=== PATIENT | male | born 1935 | race Caucasian/White ===

== ENCOUNTER 2019-02-12 08:15 | Observation (INO) | payer MEDICARE ==
[2019-02-12] MEDS ORDERED: Iopamidol 300 61% 100 ML VIAL FS ONE ×2 (09:00→15:05)
[2019-02-12 09:02] LABS: Hemoglobin 17.4 g/dL (14.0-18.0); Mean Corpuscular HGB CONC 32.4 g/dL (32.0-36.0); Mean Corpuscular Hemoglobin 30.2 pg (27.0-31.0); Mean Corpuscular Volume 93.2 fL (78.0-98.0); Mean Platelet Volume 6.8 fL (7.4-10.4); Platelet Count 101 thou/uL (130-400); RBC Distribution Width 12.7 % (11.5-14.5); Red Blood Cell (RBC) Count 5.76 mill/uL (4.70-6.10); White Blood Cell (WBC) Count 3.1 thou/uL (4.8-10.8)
[2019-02-12 09:03] LABS: ALT (SGPT) 21 U/L (8-55); AST (SGOT) 20 U/L (5-34); Albumin 4.1 g/dL (3.4-4.8); Alkaline Phosphatase 99 U/L (40-150); Anion Gap 16 mmol/L (10-20); BUN (Urea Nitrogen) 22 mg/dL (8.4-25.7); Bilirubin, Total 0.6 mg/dL (0.2-1.2); Calc. Creatinine Clearance 0 mL/min (70-130); Calcium 9.9 mg/dL (7.8-10.44); Carbon Dioxide 23 mmol/L (23-31); Chloride 107 mmol/L (98-107); Estimated GFR-MDRD 51; Globulin 3.2 g/dL (2.4-3.5); Glucose 139 mg/dL (83-110); Lipase 36 U/L (8-78); Potassium 3.7 mmol/L (3.5-5.1); Protein, Total 7.3 g/dL (5.8-8.1); Sodium 142 mmol/L (136-145)
[2019-02-12] MEDS ORDERED: Ciprofloxacin Lactate/D5W 400 mg/200 ml Premix ONE (09:06)
[2019-02-12 09:28] LABS: Band 3 % (5-11); Lymphocytes 20 % (21-51); Monocytes 12 % (0-10); Polychromasia SLIGHT = 2-3 cells (100X) (0-2/hpf); Reactive Lymphocytes 4 % (0-10)
[2019-02-12 09:29] LABS: Neutrophil 61 % (42-75); Platelet Morphology Comment Appears Decreased
--- NOTE | 2019-02-12 09:41 | CT ---
EXAM: CT ABDOMEN AND PELVIS HISTORY: Abdominal pain. Diarrhea. COMPARISON: None. Procedure: Multiple contiguous axial images were obtained and a CT of the abdomen and pelvis with IV contrast. C oronal reformats were performed. FINDINGS: Lower Chest: within normal limits. Vessels: Atherosclerosis. Normal caliber. Heart: Normal heart size. Abdomen: Portal vein:Patent Gallbladder: No calcified gallstones. Normal caliber wall. Liver: 0.7 x 0.8 cm hypodensity in the right lobe. Otherwise, unremarkable parenchyma Pancreas: within normal limits. Spleen: Normal echotexture. Mild splenomegaly, measuring 15.3 cm Adrenals: Symmetric enhancement kidneys. No evidence of obstructive uropathy. There are calcification s in the right cortex, likely due to remote insult. There is evidence of scar tissue in renal cortical thinning in the right renal cortex. There is a exophytic hypodensity emanating from the lowe r pole left kidney, measuring 5.4 x 5.9 cm, compatible with a simple cyst. There is a second hypodensity in the mid left renal cortex measuring 3.3 x 2.9 cm also compatible with a simple disc. A dditional smaller hypodensities in the left and right kidney are noted. There are 2 enhancing foci in the left renal cortex, measuring 2.3 x 1.7 and 2.7 x 1.8 cm. Both lesio ns are worrisome for a neoplastic process. Kidneys: within normal limits. Peritoneum: Nonspecific stranding of the right lower quadrant mesentery. There are mildly enlarged me senteric lymph nodes. Design Manager enlarged lymph node measures 0.5 x 0.4 cm Bowel: Limited evaluation due to lack of contrast. No evidence of bowel obstruction. Ileocecal juncti on is unremarkable. Normal caliber appendix. Scattered fecal material in a nondistended, nondilated colon. Occasional diverticulum. No diverticulitis. Bowel wall thickening distal descending colon and sigmoid colon is likely due to inadequate distention Mesentery and Retroperitoneum: Enlarged right lower quadrant mesenteric lymph nodes. Abdominal Wall: Evidence of previous left inguinal hernia repair. Pelvis: Reproductive Organs: No pelvic masses. Pelvis: Surgical clips secondary to previous prostate resection. Bladder: Grossly unremarkable. Bones: within normal limits. IMPRESSION: 1. No acute abnormality in the abdomen or pelvis. 2. No evidence of obstructive uropathy 3. No evidence of bowel obstruction. Normal caliber appendix 4. Diverticulosis, without evidence of diverticulitis. 5. Splenomegaly 6. Enhancing foci in the left kidney, worrisome for neoplasm until otherwise. Consider urology consul tation. CODE T
[2019-02-12] MEDS ORDERED: metroNIDAZOLE 500 MG/100 ML BAG ONE (10:49)
[2019-02-12] MEDS ORDERED: Ondansetron PF 4 MG/2 ML Vial IVP PRN (12:18)
[2019-02-12] MEDS ORDERED: Ondansetron ODT 4 MG TAB PO PRN (12:19)
[2019-02-12] MEDS ORDERED: Sodium Chloride 0.9% 1,000 ML IV SCH (12:30)
[2019-02-12 13:08] VITALS: BMI 26.5
[2019-02-12] MEDS ORDERED: Acetaminophen 325 MG TAB PO PRN (14:09)
[2019-02-12] MEDS: Sodium Chloride 0.9% 1,000 ML IV SCH (16:30)
[2019-02-12] MEDS ORDERED: Rosuvastatin 10 MG TAB PO SCH (17:00)
[2019-02-12] MEDS: Pramipexole Di-HCl 0.25 MG TAB PO SCH (17:14)
[2019-02-12] MEDS: metroNIDAZOLE 500 MG in Premix Bag 1 BAG IVPB SCH (18:25)
[2019-02-12] MEDS: Famotidine 20 MG TAB PO SCH (20:12)
[2019-02-12] MEDS ORDERED: traZODone HCl 50 MG TAB PO SCH (21:00)
[2019-02-12] MEDS ORDERED: HYDROcodone/Acetaminophen 10/325 mg Tablet PO SCH (22:45)
[2019-02-12] MEDS ORDERED: Lorazepam 1 MG TAB PO SCH (22:45)
--- NOTE | 2019-02-13 00:46 | HP ---
CHIEF COMPLAINT: Diarrhea. HISTORY OF PRESENT ILLNESS: This patient is an 83-year-old male who had a 4-day history of fairly severe frequent and explosive diarrhea with some abdominal bloating. He had no associated nausea, vomiting, fevers, or chills. He has not been taking in much p.o. because he thought this was likely a stomach virus and did not want to exacerbate his symptoms. He called his PCP 2 days prior and had stool studies ordered. Today, the patient was instructed that he needed to present to the emergency department by his PCP who then called the emergency department, indicated that the patient's stool studies had in fact come back positive for Salmonella. The patient received 2 L of fluid in the emergency department at the time of my exam, reports he is actually feeling substantially better. He has become profoundly weak and that seems to be improving already. REVIEW OF SYSTEMS: All systems reviewed. All pertinent positives and negatives noted in history of present illness. Of note, the patient denies any recent travel, consumption of suspicious or exotic foods or any ill contacts. PAST MEDICAL HISTORY: Notable for gastroesophageal reflux disorder, history of one episode of pancreatitis, hyperlipidemia, hypertension, spinal stenosis with low back pain, anxiety. 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 This apparently was a benign tumor. He subsequently developed tumors on the left, which have been biopsied and apparently proven to be benign as well. PAST SURGICAL HISTORY: Herniorrhaphy, partial right nephrectomy, left kidney mass biopsy which was benign, bilateral knee replacements, radical prostatectomy for prostate cancer. FAMILY HISTORY: Father of CHF at 85. Mother at 87. Had a sister who at 87 and a brother who at 91. SOCIAL HISTORY: No tobacco use. Has rare alcohol use. He is full code and his would be his surrogate decision maker. ALLERGIES: MEPERIDINE. HOME MEDICATIONS: 1. Mirapex 1 p.o. b.i.d. 2. Zantac 300 at bedtime. 3. Rosuvastatin one p.o. q.p.m. 4. Trazodone 100 mg at bedtime. 5. Magnesium 500 q.p.m. 6. Lorazepam 1.5 at bedtime and 1 mg daily. 7. Sertraline 100 mg daily, 50 mg q.p.m. 8. Hydrocodone p.r.n. 9. Flaxseed oil 1000 mg daily. 10. Diltiazem 120 mg daily. PHYSICAL EXAMINATION: VITAL SIGNS: Temperature 97.6, pulse 68, respirations 20, O2 saturation 95% on room air, BP 130/68. GENERAL APPEARANCE: Normal, age-appropriate male, in no distress. He is awake, alert, oriented, pleasant, and cooperative. He is in no acute distress. Appears looked pretty good at the moment. He is awake and alert. HEENT: TRINI. No OP lesions. NECK: Supple and symmetric. HEART: Regular rate and rhythm without murmurs, gallops, or rubs. LUNGS: Clear to auscultation bilaterally with good chest wall expansion and air exchange. ABDOMEN: Soft, nontender, and nondistended. Positive bowel sounds. No masses. No organomegaly. EXTREMITIES: No cyanosis, clubbing, or edema. NEURO: Fully intact. No focal deficits. PSYCH: Normal affect and behavior. LABORATORY DATA: White count 3.1, hemoglobin 17.4, platelets 101. Chemistries normal with the exception of creatinine 1.35, glucose 139. Stool occult blood is positive. CT abdomen and pelvis shows diverticulosis without diverticulitis. Mild splenomegaly. Enhancing foci on the left kidney concerning for possible cancer. IMPRESSION AND PLAN: 1. Salmonella enterocolitis with diarrhea. Continue with the Cipro and Flagyl started in the emergency department. 2. Acute renal insufficiency on chronic stage 3 kidney disease. The patient's previous GFR was 77 and his previous creatinine was 0.94. This represents acute on chronic renal insufficiency. He has received IV fluids. We will continue those and recheck in the morning. 3. Leukopenia, this appears to be longstanding going back to 2016, as does his thrombocytopenia, possibly representing some form of bone marrow failure. No acute intervention indicated. Job ID: [id number]
[2019-02-13] MEDS: metroNIDAZOLE 500 MG in Premix Bag 1 BAG IVPB SCH ×2 (03:14→11:43)
[2019-02-13] MEDS: Sodium Chloride 0.9% 1,000 ML IV SCH (03:16)
[2019-02-13 06:11] LABS: #Lymphocytes 0.7 thou/uL (1.20-3.40); #Monocytes 0.2 thou/uL (0.11-0.59); #Neutrophils 1.4 thou/uL (1.40-6.50); %Basophils 1.8 % (0.0-1.0); %Lymphocytes 29.2 % (21.0-51.0); Hemoglobin 13.8 g/dL (14.0-18.0); Mean Corpuscular HGB CONC 34.5 g/dL (32.0-36.0); Mean Corpuscular Hemoglobin 31.9 pg (27.0-31.0); Mean Corpuscular Volume 92.5 fL (78.0-98.0); Mean Platelet Volume 7.4 fL (7.4-10.4); Platelet Count 96 thou/uL (130-400); RBC Distribution Width 12.4 % (11.5-14.5); Red Blood Cell (RBC) Count 4.33 mill/uL (4.70-6.10); White Blood Cell (WBC) Count 2.4 thou/uL (4.8-10.8)
[2019-02-13 06:25] LABS: Anion Gap 9 mmol/L (10-20); BUN (Urea Nitrogen) 14 mg/dL (8.4-25.7); Calc. Creatinine Clearance 86 mL/min (70-130); Calcium 8.9 mg/dL (7.8-10.44); Carbon Dioxide 26 mmol/L (23-31); Chloride 109 mmol/L (98-107); Estimated GFR-MDRD 85; Glucose 93 mg/dL (83-110); Potassium 4.3 mmol/L (3.5-5.1); Sodium 140 mmol/L (136-145)
[2019-02-13] MEDS: Pramipexole Di-HCl 0.25 MG TAB PO SCH (08:24)
[2019-02-13] MEDS: Famotidine 20 MG TAB PO SCH (08:30)
[2019-02-13] MEDS ORDERED: Enoxaparin Sodium 30 MG/0.3 ML SYRINGE SC SCH (09:00)
[2019-02-13] MEDS ORDERED: HYDROcodone/Acetaminophen 10/325 mg Tablet PO SCH ×3 (09:00→21:00)
[2019-02-13] MEDS ORDERED: Lorazepam 1 MG TAB PO SCH ×2 (09:00→21:00)
[2019-02-13] MEDS ORDERED: Flaxseed Oil [Flaxseed Oil] 1,000 MG PO SCH (09:00)
[2019-02-13 11:26] VITALS: BP 145/72; TEMP 98.2
--- NOTE | 2019-02-14 14:42 | DIS ---
DATE OF ADMISSION: 02/12/2019 DATE OF DISCHARGE: 02/13/2019 DISCHARGE DIAGNOSES: 1. Salmonella colitis. 2. Dehydration. 3. Acute renal insufficiency on chronic stage 3 kidney disease. 4. Chronic leukopenia. HISTORY OF PRESENT ILLNESS: This patient is an 83-year-old male who had been suffering from significant diarrheal illness. He had actually called his PCP 2 days prior and had stool studies ordered. The patient received a call from his PCP directing him to the emergency department. While in the emergency department, his physician called indicating his stool studies did come back positive for Salmonella. The patient was continuing to have a large amount of explosive diarrhea. He received 2 L of fluid in the emergency department and said he was feeling substantially better just after getting the fluids. HOSPITAL COURSE: The patient was noted to have mild leukopenia with white count of 3.1, which was chronic for him. He had a bump in his creatinine to 1.35 above his baseline, most likely related to prerenal azotemia, dehydration from the large amount of diarrhea. The patient has admittedly decreased his p.o. intake, afraid that he was exacerbating the diarrhea. Stool occult blood was positive, consistent with invasive species of the Salmonella. A CT abdomen and pelvis showed diverticulosis without diverticulitis. There was an enhancing lesion on the left kidney concerning for the possibility of a cancer. The patient had dramatic improvement with his fluids. His diarrhea almost completely stopped. He felt better, was eating well, ambulating and had no new complaints. I had a long discussion regarding his findings on his CT scan regarding his kidney. The patient was well aware of these findings as he had been followed for years. He had a partial nephrectomy related to similar lesion initially, the pathology after the partial nephrectomy revealed a benign lesion. He had no recurrence of similar lesions on the contralateral side. A biopsy was obtained again showing benign pathology. Therefore, no further workup of this was entertained at that time. PHYSICAL EXAMINATION: VITAL SIGNS: On the day of discharge, temperature is 98.2 pulse 68, respirations 16, O2 saturation 93% on room air, BP is 145/72. GENERAL: He is awake, alert, oriented. HEART: Regular rate and rhythm. LUNGS: Clear. ABDOMEN: Soft, nontender, and nondistended. EXTREMITIES: No edema. DISPOSITION: The patient is discharged to home. DISCHARGE INSTRUCTIONS: He is to have a regular diet and activity level. He will be on Cipro 500 mg b.i.d. He will continue his usual home medication. FOLLOWUP: He will follow up with his primary care provider next week, Dr. Urban and he can return to the hospital should he have any problems prior to that time. Job ID: [id number] [id number]
== END 2019-02-13 14:01 | disposition home or self-care (01) ==
LOC: SCSER 08:15 → INTOOBSV 10:15 → T4-B 10:15
PROVIDERS: ADMIT Internal Medicine; ATTEND Internal Medicine
DX: A02.0 Salmonella enteritis (principal); I12.9 Hypertensive chronic kidney disease with stage 1 through stage 4 chronic kidney disease, or unspecified chronic kidney disease; N18.3 Chronic kidney disease, stage 3 (moderate); N28.9 Disorder of kidney and ureter, unspecified; K57.90 Diverticulosis of intestine, part unspecified, without perforation or abscess without bleeding; E78.5 Hyperlipidemia, unspecified; F41.9 Anxiety disorder, unspecified; M48.061 Spinal stenosis, lumbar region without neurogenic claudication; K21.9 Gastro-esophageal reflux disease without esophagitis; D69.6 Thrombocytopenia, unspecified; R16.1 Splenomegaly, not elsewhere classified; Z79.899 Other long term (current) drug therapy; Z88.5 Allergy status to narcotic agent
CPT/HCPCS: 74177; 80048; 80053; 82274; 83605; 83690; 85025 ×2; 87040; 96361 ×3; 96365; 96366; 96367; 99285; G0378 ×2; 36415; J0744; J1650; Q9967